=== PATIENT | female | born 1945 | race Hispanic/Latino ===

== ENCOUNTER 2016-06-24 09:30 | Day surgery (SDC) | payer MEDICARE, BC ==
[2016-06-15 10:21] VITALS: BMI 40.7
[2016-06-24] MEDS ORDERED: Propofol 10 mg/ml Inj (20 ML) ONE ×2 (12:06→13:12)
[2016-06-24] MEDS ORDERED: Lactated Ringer's 1,000 ML IV SCH (13:30)
[2016-06-24 14:00] VITALS: O2SAT 95
[2016-06-24 14:39] VITALS: BP 153/77; PULSE 89; RESP 16; TEMP 97.9
== END 2016-06-24 14:59 | disposition home or self-care (01) ==
LOC: ENDO 09:30
PROVIDERS: ATTEND Internal Medicine Gastroenterology
DX: K22.70 Barrett's esophagus without dysplasia (principal); K29.50 Unspecified chronic gastritis without bleeding; K44.9 Diaphragmatic hernia without obstruction or gangrene; I10 Essential (primary) hypertension; E78.5 Hyperlipidemia, unspecified
CPT/HCPCS: 43239; 88305; 88312; 88342; J2704; J7040; J7120

== ENCOUNTER 2017-08-15 11:10 | Day surgery (SDC) | payer MEDICARE, BC ==
[2016-06-15 10:21] VITALS: BMI 40.7
[2017-08-15] MEDS ORDERED: Propofol 10 mg/ml Inj (20 ML) ONE (12:35)
[2017-08-15] MEDS ORDERED: Lidocaine 2% Inj (20ml) ONE (12:42)
[2017-08-15] MEDS ORDERED: Sodium Chloride 0.9% 1,000 ML IV SCH (13:15)
[2017-08-15 14:44] VITALS: BP 125/71; PULSE 76; RESP 15; TEMP 98.4; O2SAT 95
== END 2017-08-15 14:50 | disposition home or self-care (01) ==
LOC: ENDO 11:10
PROVIDERS: ATTEND Internal Medicine Gastroenterology
DX: K22.70 Barrett's esophagus without dysplasia (principal); K21.9 Gastro-esophageal reflux disease without esophagitis; Z80.0 Family history of malignant neoplasm of digestive organs
CPT/HCPCS: 43239; 88305; 88312; J2001; J2704; J3010; J7030; J7040

== ENCOUNTER 2018-01-26 09:28 | Day surgery (SDC) | payer MEDICARE, BC ==
[2016-06-15 10:21] VITALS: BMI 40.7
[2018-01-26] MEDS ORDERED: Sodium Chloride 0.9% 1,000 ML IV SCH (09:30)
[2018-01-26] MEDS ORDERED: Propofol 10 mg/ml Inj (20 ML) ONE ×4 (09:44→11:15)
[2018-01-26 12:31] VITALS: PULSE 71
[2018-01-26 13:16] VITALS: BP 128/72; RESP 16; TEMP 9875; O2SAT 96
== END 2018-01-26 14:59 | disposition home or self-care (01) ==
LOC: ENDO 09:28
PROVIDERS: ATTEND Internal Medicine Gastroenterology
DX: D12.0 Benign neoplasm of cecum (principal); K57.30 Diverticulosis of large intestine without perforation or abscess without bleeding; K64.8 Other hemorrhoids
CPT/HCPCS: 45381; 45385; 88305; J2001; J2704; J7030 ×2